=== PATIENT | female | born 1970 | race African-American/Black ===

== ENCOUNTER 2021-06-05 12:01 | Emergency (ER) | payer MEDICAID ==
[~2021-06-05] VITALS: Ht 175.3 cm; Wt 77.1 kg
[2021-06-05 13:43] VITALS: BP 126/66
[2021-06-05] MEDS ORDERED: TETRACAINE HCL 0.5% OPTH(EYE) SOLN 4ML EACHEYE ONE (13:45)
[2021-06-05] MEDS ORDERED: FLUORESCEIN SOD OPTH TEST STRIP OP ONE (13:45)
[2021-06-05] MEDS ORDERED: IBUP600T27 PO (14:23)
[2021-06-05] MEDS ORDERED: CIP03OS RIGHTEYE (14:23)
== END 2021-06-05 14:47 | disposition home or self-care (01) ==
LOC: ER 12:01
DX: S05.01XA Injury of conjunctiva and corneal abrasion without foreign body, right eye, initial encounter (principal); F17.210 Nicotine dependence, cigarettes, uncomplicated; X58.XXXA Exposure to other specified factors, initial encounter; Y93.89 Activity, other specified; Y92.89 Other specified places as the place of occurrence of the external cause; Y99.8 Other external cause status
CPT/HCPCS: 65222